=== PATIENT | female | born 1995 | race Two or more races ===

== ENCOUNTER 2018-06-15 01:21 | Observation (INO) | payer SELFPAY ==
[2018-06-15 01:57] LABS: BILIRUBIN,URINE NEGATIVE (NEG); CLARITY,URINE CLEAR; COLOR,URINE YELLOW; NITRITE,URINE NEGATIVE (NEG); PROTEIN,URINE NEGATIVE (NEG-TRACE); UROBILINOGEN,URINE 0.2 mg/dL (0.2 mg/dL)
[2018-06-15 02:03] LABS: AMORPHOUS SEDIMENT,UR PRESENT /HPF; BACTERIA,URINE 0 /HPF (0-FEW); RBC,URINE 0 /HPF (0-2); SQUAMOUS EPITHELIAL CELL,UR FEW /LPF
[2018-06-15 02:09] LABS: BARBITURATES NEG (NEG); BENZODIAZEPINES NEG (NEG); CANNABINOIDS NEG (NEG); COCAINE NEG (NEG); METHADONE NEG (NEG); OPIATES NEG (NEG); PHENCYCLIDINE NEG (NEG)
[2018-06-15 02:11] LABS: AMPHETAMINE/METHAMPHETAMINE NEG (NEG)
[2018-06-15] MEDS ORDERED: hydrOXYzine PAMOATE 25 MG CAPSULE PO PRN (02:30)
[2018-06-15] MEDS ORDERED: CALCIUM CARBONATE 500 MG TAB.CHEW PO PRN (02:30)
[2018-06-15] MEDS ORDERED: FAMOTIDINE 20 MG TABLET. PO SCH (09:00)
== END 2018-06-15 03:00 | disposition left against medical advice (07) ==
LOC: 3 SO LND 01:21
PROVIDERS: ADMIT Specialist; ATTEND Specialist
DX: O26.893 Other specified pregnancy related conditions, third trimester (principal); R10.11 Right upper quadrant pain; Z79.899 Other long term (current) drug therapy; Z3A.29 29 weeks gestation of pregnancy
CPT/HCPCS: 80307; 81001; G0378; G0379; 87086; G0479